=== PATIENT | female | born 1945 | race Hispanic/Latino ===

== ENCOUNTER → 2018-04-12 | Outpatient (CLI) | payer MEDICARE | END | disposition home or self-care (01) | LOC: RAH 10:48 | PROVIDERS: ATTEND Physical Medicine & Rehabilitation | DX: M47.896 Other spondylosis, lumbar region (principal); M48.061 Spinal stenosis, lumbar region without neurogenic claudication | CPT/HCPCS: 72114 ==

== ENCOUNTER → 2018-09-09 | Outpatient (CLI) | payer MEDICARE ==
[~2018-09-09] MED LIST: REGADENOSON 0.4 MG/5 ML PF SYG IVP SCH
== END | disposition home or self-care (01) ==
LOC: SHCH 07:54
PROVIDERS: ATTEND Internal Medicine Cardiovascular Disease
DX: I48.2 Chronic atrial fibrillation (principal)
CPT/HCPCS: 78452; 93017; 96374; A9500 ×2; J2785

== ENCOUNTER → 2019-02-15 | Outpatient (CLI) | payer MEDICARE | END | disposition home or self-care (01) | LOC: LAB 08:40 | PROVIDERS: ATTEND Internal Medicine Gastroenterology | DX: R10.31 Right lower quadrant pain (principal) | CPT/HCPCS: 36415; 82565; 84520 ==

== ENCOUNTER → 2019-02-18 | Outpatient (CLI) | payer MEDICARE ==
[~2019-02-18] MED LIST changes: +IOHEXOL-350 75 ML VIAL IV ONE; -REGADENOSON 0.4 MG/5 ML PF SYG IVP SCH
== END | disposition home or self-care (01) ==
LOC: RAH 07:43
PROVIDERS: ATTEND Internal Medicine Gastroenterology
DX: K59.00 Constipation, unspecified (principal); K76.0 Fatty (change of) liver, not elsewhere classified; M47.814 Spondylosis without myelopathy or radiculopathy, thoracic region; I70.0 Atherosclerosis of aorta; Z90.49 Acquired absence of other specified parts of digestive tract; Z90.710 Acquired absence of both cervix and uterus
CPT/HCPCS: 74178; Q9967

== ENCOUNTER → 2019-04-14 | Outpatient (CLI) | payer MEDICARE | END | disposition home or self-care (01) | LOC: RAH 13:16 | PROVIDERS: ATTEND Physical Medicine & Rehabilitation | DX: M47.26 Other spondylosis with radiculopathy, lumbar region (principal); M48.061 Spinal stenosis, lumbar region without neurogenic claudication; I70.0 Atherosclerosis of aorta | CPT/HCPCS: 72131 ==

== ENCOUNTER 2019-05-10 05:48 | Day surgery (SDC) | payer MEDICARE ==
[2019-05-06 14:09] VITALS: BP 132/62
[2019-05-10] VITALS (8 sets, daily range): BP systolic 146–160; BP diastolic 46–98
[~2019-05-10] VITALS: Ht 152.4 cm; Wt 54.4 kg
[~2019-05-10 05:48] MED LIST changes: +APIX5TAB PO; +ATOR10TA69 PO; +BETH50TA PO; +CARV12.511 PO; +CYCL30DR OU; +DIGO-44 PO; +ERGO500014 PO; +ESZO2 PO; +FAMO20TA8 PO; +FURO20TA4 PO; +GABA-529 PO; -IOHEXOL-350 75 ML VIAL IV ONE; +LINA145C PO; +LOSA25TA41 PO; +LOSA50TA64 PO; +METO5TAB2 PO; +SPIR25TA6 PO; +TRAM50TA2 PO
[2019-05-10] MEDS ORDERED: ISOVUE-M 200 20 ML VIAL IT ONE (07:09)
--- NOTE | 2019-05-10 07:35 | NUR ---
CT LUMBAR MYELOGRAM PROCEDURE PERFORMED BY DR. QUIROZ. PUNCTURE SITE LOW BACK AND PATIENT TOLERATED PROCEDURE WELL. CONTRAST INJECTION OF ISOVUE 170/17ML GIVEN AT 0740 AND TOLERATED WELL. END OF PROCEDURE AT 0742. SPINAL NEEDLE REMOVED AND BANDAID APPLIED WITH NO BLEEDING NOTED. REPORT GIVEN TO PRESTON MIXON. PATIENT TRANSPORTED TO DAY PATIENT VIA BED. AAO X 3 WITH NO C/O PAIN.
--- NOTE | 2019-05-10 08:00 | NUR ---
SITE ASSESSMENT: BANDAID TO LOWER LUMBAR SPINE IS DRY AND INTACT. NO DRAINAGE,NO BLEEDING, NO HEMATOMA OR SWELLING NOTED.
--- NOTE | 2019-05-10 08:00 | NUR ---
PATIENT RETURNED PATIENT BROUGHT BACK FROM IR PROCEDURE VIA STRETCHER. PATIENT AAOX3, RESPIRATIONS UNLABORED, VITAL SIGNS STABLE, DENIES ANY PAIN AT THIS TIME. BANDAID TO LOWER LUMBAR SPINE, DRY AND INTACT. SIDERAILS UP X2, BED IN LOWEST POSITION, CALL GONZALEZ IN REACH.
--- NOTE | 2019-05-10 08:15 | NUR ---
SITE ASSESSMENT: BANDAID TO LOWER LUMBAR SPINE IS DRY AND INTACT. NO DRAINAGE,NO BLEEDING, NO HEMATOMA OR SWELLING NOTED.
[2019-05-10 08:28] LABS: APPEARANCE2,CSF CLEAR (CLEAR); COLOR2,CSF COLORLESS (COLORLESS); CSF 2ND TUBE NUMBER TUBE NO.2
--- NOTE | 2019-05-10 08:30 | NUR ---
SITE ASSESSMENT: BANDAID TO LOWER LUMBAR SPINE IS DRY AND INTACT. NO DRAINAGE,NO BLEEDING, NO HEMATOMA OR SWELLING NOTED.
--- NOTE | 2019-05-10 08:45 | NUR ---
SITE ASSESSMENT: BANDAID TO LOWER LUMBAR SPINE IS DRY AND INTACT. NO DRAINAGE,NO BLEEDING, NO HEMATOMA OR SWELLING NOTED.
--- NOTE | 2019-05-10 09:15 | NUR ---
SITE ASSESSMENT: BANDAID TO LOWER LUMBAR SPINE IS DRY AND INTACT. NO DRAINAGE,NO BLEEDING, NO HEMATOMA OR SWELLING NOTED.
--- NOTE | 2019-05-10 09:45 | NUR ---
SITE ASSESSMENT: BANDAID TO LOWER LUMBAR SPINE IS DRY AND INTACT. NO DRAINAGE,NO BLEEDING, NO HEMATOMA OR SWELLING NOTED.
--- NOTE | 2019-05-10 10:45 | NUR ---
SITE ASSESSMENT: BANDAID TO LOWER LUMBAR SPINE IS DRY AND INTACT. NO DRAINAGE,NO BLEEDING, NO HEMATOMA OR SWELLING NOTED.
--- NOTE | 2019-05-10 11:45 | NUR ---
SITE ASSESSMENT: BANDAID TO LOWER LUMBAR SPINE IS DRY AND INTACT. NO DRAINAGE,NO BLEEDING, NO HEMATOMA OR SWELLING NOTED.
--- NOTE | 2019-05-10 12:05 | NUR ---
DISCHARGE INSTRUCTIONS DISCHARGE INSTRUCTIONS PROVIDED TO PATIENT AND PATIENT'S SPOUSE. FOLLOW UP APPOINTMENTS PROVIDED AND PRESCRIPTION PROVIDED WELL. HANDOUTS ON MYELOGRAM AFTER CARE PROVIDED. ALL QUESTIONS/CONCERNS ADDRESSED AND PATIENT VERBALIZED UNDERSTANDING.
--- NOTE | 2019-05-10 12:20 | NUR ---
DISCHARGED PATIENT DISCHARGED FROM FACILITY VIA WHEELCHAIR, PATIENT ABLE TO TRANSFER INTO PRIVATE VEHICLE UNASSISTED AND DRIVEN BY HER SPOUSE.,
== END 2019-05-10 12:20 | disposition home or self-care (01) ==
LOC: DAH 05:48 → SUH 05:48
PROVIDERS: ATTEND Neurological Surgery
DX: M54.16 Radiculopathy, lumbar region (principal); Z79.01 Long term (current) use of anticoagulants; Z95.0 Presence of cardiac pacemaker
CPT/HCPCS: 62304; 72132; 89051; A4606; Q9966

== ENCOUNTER → 2020-07-09 | Outpatient (CLI) | payer MEDICARE | END | disposition home or self-care (01) | LOC: SHCH 08:12 | PROVIDERS: ATTEND Internal Medicine Cardiovascular Disease | DX: I08.1 Rheumatic disorders of both mitral and tricuspid valves (principal); I42.0 Dilated cardiomyopathy; E78.5 Hyperlipidemia, unspecified; I11.9 Hypertensive heart disease without heart failure | CPT/HCPCS: 93306; 93356 ==

== ENCOUNTER → 2020-08-28 | Outpatient (CLI) | payer MEDICARE ==
[~2020-08-28] VITALS: Ht 152.4 cm; Wt 58.1 kg
[~2020-08-28] MED LIST changes: +REGADENOSON 0.4 MG/5 ML PF SYG IVP SCH
== END | disposition home or self-care (01) ==
LOC: SHCH 08:34
PROVIDERS: ATTEND Internal Medicine Cardiovascular Disease
DX: I25.10 Atherosclerotic heart disease of native coronary artery without angina pectoris (principal)
CPT/HCPCS: 78452; 93017; 96374; A9500 ×2; J2785

== ENCOUNTER 2020-09-28 09:05 | Day surgery (SDC) | payer MEDICARE ==
[2020-09-26 09:53] LABS: BASOPHILS % (AUTO) 0.5 % (0.0-5.0); LYMPHOCYTES % (AUTO) 18.5 % (21.0-51.0); MEAN CORPUSCULAR HGB CONC 33.6 g/dL (32.0-36.0); MEAN CORPUSCULAR VOLUME 95.1 fL (79-99); MONOCYTES % (AUTO) 6.6 % (3.0-13.0); NEUTROPHILS % (AUTO) 73.9 % (40.0-77.0); PLATELET COUNT (AUTO) 207 K/uL (130-400); RED CELL DISTRIBUTION WIDTH 13.2 % (11.0-15.5); WHITE BLOOD COUNT (AUTO) 12.9 K/uL (4.8-10.8)
[2020-09-26 10:01] LABS: APPEARANCE,URINE Cloudy (CLEAR); BILIRUBIN,URINE Negative (NEGATIVE); COLOR,URINE Yellow (YELLOW); GLUCOSE, URINE (UA) >=1000 mg/dL (NEGATIVE); KETONES,URINE Negative (NEGATIVE); LEUKOCYTE ESTERASE ,URINE Negative (NEGATIVE); NITRATE,URINE Negative (NEGATIVE); OCCULT BLOOD,URINE Negative (NEGATIVE); PH,URINE 5.5 (5.0-8.0); PROTEIN,URINE Trace mg/dL (NEGATIVE); UROBILINOGEN,URINE 0.2 mg/dL (0.2-1.0)
[2020-09-26 10:02] LABS: CREATININE 0.8 mg/dL (0.5-1.5); POTASSIUM 4.1 mmol/L (3.5-5.1)
[2020-09-26 10:05] LABS: INR 1.23 (0.85-1.15); PROTHROMBIN TIME 13.2 SEC (9.6-11.6)
[2020-09-26 10:06] LABS: PARTIAL THROMBOPLASTIN TIME 31.2 SEC (26.3-35.5)
[2020-09-26 10:12] LABS: BACTERIA,URINE Rare /HPF (None Seen); RBC,URINE 0-1 /HPF (0-1); WBC,URINE 0-1 /HPF (0-1)
[2020-09-27 09:25] VITALS: BP 172/83
[~2020-09-28] VITALS: Ht 152.4 cm; Wt 56.7 kg
[2020-09-28] VITALS (13 sets, daily range): BP systolic 123–175; BP diastolic 44–99
[~2020-09-28 09:05] MED LIST changes: +ACETAMINOPHEN 325 MG TAB PO PRN; -BETH50TA PO; +CALC625T31 PO; -FAMO20TA8 PO; -METO5TAB2 PO; -REGADENOSON 0.4 MG/5 ML PF SYG IVP SCH; +SODIUM CHLORIDE 0.9% 500ML 500 ML IV SCH; -TRAM50TA2 PO
[2020-09-28] MEDS ORDERED: LIDOCAINE HCL 2% 20ML ONE (11:28)
[2020-09-28] MEDS ORDERED: MIDAZOLAM HCL 1 MG/ML 2ML VIAL ONE ×2 (11:28→12:17)
[2020-09-28] MEDS ORDERED: IOHEXOL 350 MG/ML 100ML INFUS..BTL IV ONE (11:28)
[2020-09-28] MEDS ORDERED: SODIUM BICARB 50MEQ 50ML VIAL 50 ML ONE (11:28)
[2020-09-28] MEDS ORDERED: HEPARIN SODIUM 1000UNIT/ML 10ML VIAL ONE (11:28)
[2020-09-28] MEDS ORDERED: IOHEXOL-350 50ML VIAL IV ONE (11:28)
[2020-09-28] MEDS ORDERED: MEPERIDINE-PF 25 MG/ML SYG ONE ×2 (11:28→12:17)
[2020-09-28] MEDS ORDERED: NITROGLYCERIN 2 MG/VIAL VIAL IV ONE (11:28)
[2020-09-28] MEDS ORDERED: NICARDIPINE HCL 25 MG/10 ML ML IV ONE (11:56)
[2020-09-28] MEDS ORDERED: LABETALOL 20 MG/4 ML DISP.SYRIN IV ONE (12:23)
[2020-09-28] MEDS ORDERED: SODIUM CHLORIDE 0.9% 1000ML 1,000 ML IV SCH (13:00)
== END 2020-09-28 17:33 | disposition home or self-care (01) ==
LOC: DAH 09:05
PROVIDERS: ATTEND Internal Medicine Cardiovascular Disease
DX: I25.119 Atherosclerotic heart disease of native coronary artery with unspecified angina pectoris (principal); I34.0 Nonrheumatic mitral (valve) insufficiency; I48.20 Chronic atrial fibrillation, unspecified; I73.9 Peripheral vascular disease, unspecified; I25.5 Ischemic cardiomyopathy; Z95.5 Presence of coronary angioplasty implant and graft; Z79.899 Other long term (current) drug therapy; Z79.01 Long term (current) use of anticoagulants; Z98.890 Other specified postprocedural states; Z95.810 Presence of automatic (implantable) cardiac defibrillator
CPT/HCPCS: 36415; 71045; 80048; 81001; 85025; 85610; 85730; 93005; 93458; A4215; A4216; A4221; A4222; A4223 ×3; A4606; A4663; A6206; A6402; C1769 ×2; C1887 ×2; C1894; J1644 ×2; J2175 ×2; J2250 ×2; J3490 ×4; Q9965; Q9967 ×2; 96360; 96361; 99156; 99157

== ENCOUNTER 2021-04-25 05:50 | Day surgery (SDC) | payer MEDICARE ==
[2021-04-23 14:47] LABS: BASOPHILS % (AUTO) 0.6 % (0.0-5.0); EOSINOPHILS % (AUTO) 0.9 % (0.0-8.0); HEMATOCRIT 40.8 % (36-48); MEAN CORPUSCULAR HEMOGLOBIN 33.2 pg (27.0-33.0); MEAN CORPUSCULAR HGB CONC 33.3 g/dL (32.0-36.0); MEAN CORPUSCULAR VOLUME 99.5 fL (79-99); MONOCYTES % (AUTO) 9.8 % (3.0-13.0); NEUTROPHILS % (AUTO) 57.3 % (40.0-77.0); PLATELET COUNT (AUTO) 203 K/uL (130-400); RED CELL DISTRIBUTION WIDTH 13.7 % (11.0-15.5); WHITE BLOOD COUNT (AUTO) 8.1 K/uL (4.8-10.8)
[2021-04-23 14:56] LABS: CREATININE 0.9 mg/dL (0.5-1.5); POTASSIUM 4.2 mmol/L (3.5-5.1)
[2021-04-23 14:59] LABS: INR 1.26 (0.85-1.15); PROTHROMBIN TIME 13.4 SEC (9.6-11.6)
[2021-04-23 15:00] LABS: PARTIAL THROMBOPLASTIN TIME 33.1 SEC (26.3-35.5)
[2021-04-24 09:41] VITALS: BP 155/82
[~2021-04-25] VITALS: Ht 152.4 cm; Wt 56.9 kg
[2021-04-25] VITALS (11 sets, daily range): BP systolic 158–184; BP diastolic 66–97
[~2021-04-25 05:50] MED LIST changes: +ACET-66 PO; -ACETAMINOPHEN 325 MG TAB PO PRN; +ALBU8.5H8 IH; +ATOR10 PO; -ATOR10TA69 PO; +BETH1POW2 PO; +BIFI4CAP PO; +CALC-1038 PO; -CALC625T31 PO; +CARB15DR OP; +CYAN500T9 PO; +FIBER FORMULA PO; +FLUT15.845 NS; +FLUT1DIS4 IH; +IPRA42SP IH; +MULT-1296 PO; +Prevagen PO; -SODIUM CHLORIDE 0.9% 500ML 500 ML IV SCH; -SPIR25TA6 PO
[2021-04-25] MEDS ORDERED: 0.9%NACL 1000ML 1,000 ML IV ONE (06:46)
[2021-04-25] MEDS ORDERED: MIDAZOLAM HCL 1 MG/ML 2ML VIAL ONE ×3 (07:39→08:35)
[2021-04-25] MEDS ORDERED: BUPIVACAINE/PF 0.25% 30ML VIAL IJ ONE (07:39)
[2021-04-25] MEDS ORDERED: CEFAZOLIN SODIUM 1 GM VIAL ONE ×2 (07:39→09:15)
[2021-04-25] MEDS ORDERED: MEPERIDINE-PF 25 MG/ML SYG ONE ×3 (07:40→08:36)
[2021-04-25] MEDS ORDERED: LIDOCAINE HCL 1% MDV 50ML VIAL ONE (07:40)
[2021-04-25] MEDS ORDERED: DEXTROSE 50%-WATER 50 ML DISP.SYRIN IV PRN (09:30)
[2021-04-25] MEDS ORDERED: INSULIN HUMULIN R 100 UNIT/ML 3ML SQ SCH (11:30)
[2021-04-25] MEDS ORDERED: CEFAZOLIN SODIUM 1 GM VIAL IVP SCH (14:00)
== END 2021-04-25 14:30 | disposition home or self-care (01) ==
LOC: DAH 05:50
PROVIDERS: ATTEND Internal Medicine Cardiovascular Disease
DX: Z45.02 Encounter for adjustment and management of automatic implantable cardiac defibrillator (principal); I25.5 Ischemic cardiomyopathy; I44.7 Left bundle-branch block, unspecified; I50.42 Chronic combined systolic (congestive) and diastolic (congestive) heart failure; I25.10 Atherosclerotic heart disease of native coronary artery without angina pectoris; I48.20 Chronic atrial fibrillation, unspecified; Z95.5 Presence of coronary angioplasty implant and graft; Z79.899 Other long term (current) drug therapy; Z98.890 Other specified postprocedural states; Z79.01 Long term (current) use of anticoagulants; Z90.49 Acquired absence of other specified parts of digestive tract
CPT/HCPCS: 33264; 36415 ×2; 80048; 80162; 85025; 85610; 85730; 93005; A4215; A4216; A4221; A4222; A4223 ×3; A4606; A4663; C1882; J0690 ×2; J2175 ×3; J2250 ×3; J3490 ×2; J7030; 99156; 99157

== ENCOUNTER → 2021-05-06 | Outpatient (CLI) | payer MEDICARE ==
[~2021-05-06] MED LIST changes: +IOHEXOL-350 75 ML VIAL IV ONE
== END | disposition home or self-care (01) ==
LOC: RAH 07:51
PROVIDERS: ATTEND Internal Medicine Gastroenterology
DX: K59.00 Constipation, unspecified (principal); K76.0 Fatty (change of) liver, not elsewhere classified; Z90.49 Acquired absence of other specified parts of digestive tract
CPT/HCPCS: 74178; Q9967

== ENCOUNTER → 2021-09-30 | Outpatient (CLI) | payer MEDICARE ==
[~2021-09-30] MED LIST changes: -IOHEXOL-350 75 ML VIAL IV ONE
== END | disposition home or self-care (01) ==
LOC: RAH 13:58
PROVIDERS: ATTEND Physical Medicine & Rehabilitation
DX: G93.89 Other specified disorders of brain (principal); G44.86 Cervicogenic headache; M54.81 Occipital neuralgia; R26.89 Other abnormalities of gait and mobility; W19.XXXA Unspecified fall, initial encounter; Y93.89 Activity, other specified; Y92.89 Other specified places as the place of occurrence of the external cause; Y99.8 Other external cause status
CPT/HCPCS: 70450

== ENCOUNTER → 2021-10-02 | Outpatient (CLI) | payer MEDICARE | END | disposition home or self-care (01) | LOC: RAH 14:11 | PROVIDERS: ATTEND Physical Medicine & Rehabilitation | DX: M54.12 Radiculopathy, cervical region (principal); M54.2 Cervicalgia | CPT/HCPCS: 72125 ==

== ENCOUNTER → 2024-11-09 | Emergency (ER) | payer MEDICARE ==
[~2024-11-09] VITALS: Ht 154.9 cm; Wt 65.8 kg
[~2024-11-09] MED LIST changes: -BIFI4CAP PO; +BIFI4CAP2 PO; -ESZO2 PO; +ESZO2TAB56 PO
[2024-11-09 14:44] LABS: BASOPHILS # (AUTO) 0.04 K/uL (0.00-0.20); BASOPHILS % (AUTO) 0.6 % (0.0-5.0); EOSINOPHILS # (AUTO) 0.11 K/uL (0.00-0.70); EOSINOPHILS % (AUTO) 1.6 % (0.0-8.0); HEMATOCRIT 41.2 % (36-48); IMMATURE GRANULOCYTE ABSOLUTE 0.02 K/uL (0-1); LYMPHOCYTES % (AUTO) 28.5 % (21.0-51.0); MEAN CORPUSCULAR HEMOGLOBIN 30.7 pg (27.0-33.0); MEAN CORPUSCULAR HGB CONC 32.3 g/dL (32.0-36.0); MEAN CORPUSCULAR VOLUME 95.2 fL (79-99); MONOCYTES # (AUTO) 0.6 K/uL (0.1-1.0); MONOCYTES % (AUTO) 9.1 % (3.0-13.0); NEUTROPHILS # (AUTO) 4.1 K/uL (1.8-7.7); NEUTROPHILS % (AUTO) 59.9 % (40.0-77.0); PLATELET COUNT (AUTO) 172 K/uL (130-400); RED BLOOD CELL COUNT(AUTO) 4.33 MIL/uL (4.00-5.50); RED CELL DISTRIBUTION WIDTH 14.3 % (11.0-15.5); WHITE BLOOD COUNT (AUTO) 6.9 K/uL (4.8-10.8)
[2024-11-09 14:54] LABS: CREATININE 0.9 mg/dL (0.5-1.0); POTASSIUM 3.7 mmol/L (3.5-5.1)
--- NOTE | 2024-11-09 15:02 | NUR ---
back from ct
--- NOTE | 2024-11-09 15:07 | HMCIMG ---
CT HEAD WITHOUT CONTRAST INDICATION: Fall TECHNIQUE: Noncontrast axial helical CT images from the vertex through the skull base using 5 mm slice thickness without contrast material. Coronal and sagittal reconstructions were also included. Dose reduction techniques was used using integrated, automated and adaptive dose reduction exposure control. CT was performed with one or more of the following dose reduction techniques: Automated exposure control, adjustment of the mA and/or kV according to patient size, or use of iterative reconstruction technique. COMPARISON: None FINDINGS: Scattered and coalescent subcortical and periventricular white matter low attenuating areas likely represent residual of chronic small vessel arteriopathy and/or remote vascular insult. Chronic large right temporal lobe infarct and secondary ex vacuo dilation of the right lateral ventricle. Generalized mild cerebral cortical atrophy is present.. No evidence for abnormal extra-axial fluid collections or masses. The ventricles and sulci are normal in size and configuration. No evidence for intracranial parenchymal, epidural, or subdural hemorrhage, mass effect or midline shift. The pollock-white matter differentiation is well preserved. No secondary evidence to suggest acute ischemia. Mild calcific plaque is present along the menendez of the cavernous segments of both internal carotid arteries, including mild along the menendez of both vertebral arteries at the level of the foramen magnum. The brainstem and cerebellum appear normal. The visualized orbits appear unremarkable. The visible paranasal sinuses and mastoid air cells are clear. The calvarium appears normal. IMPRESSION: Chronic white matter ischemic changes, mild brain atrophy, and arteriosclerotic disease as described, without acute component.
--- NOTE | 2024-11-09 15:08 | HMCIMG ---
LEFT HAND RADIOGRAPHS - 4 VIEWS INDICATION: Fall COMPARISON: None FINDINGS: AP, lateral, and oblique views. Diffuse moderate osseous demineralization. Metallic ring obscures the fourth proximal phalangeal midshaft. No acute fracture of subluxation identified. Scaphoid bone is intact. Carpal alignment and ulnar variance is within normal limits. No radiopaque foreign body noted. IMPRESSION: No evidence for fracture or subluxation.
--- NOTE | 2024-11-09 15:09 | HMCIMG ---
PORTABLE CHEST RADIOGRAPH INDICATION: fall COMPARISON: 09/26/2020 FINDINGS: Left sided dual chamber pacer and continuous leads remain in customary position. Heart size is normal. Mild calcific plaque is present along the aortic arch menendez. The pulmonary vascularity and osiris appear normal. No abnormal pulmonary parenchymal opacity or consolidation identified. No significant pleural effusion noted. No pneumothorax detected. IMPRESSION: No radiographic evidence for any acute cardiopulmonary process.
--- NOTE | 2024-11-09 15:09 | HMCIMG ---
PELVIS RADIOGRAPH (1 VIEW) INDICATION: Fall COMPARISON: None FINDINGS: Diffuse mild osseous demineralization. No evidence for acute fracture or dislocation. Sacroiliac joints appear normal. Both hip joints appear normal. Mild calcific plaque along the inflow and outflow arterial menendez. IMPRESSION: No radiographic evidence for fracture or dislocation. If patient is unable to bear weight, further evaluation with MR imaging of the affected side is recommended.
--- NOTE | 2024-11-09 15:51 | ERN ---
ED Note History of Present Illness Stated Complaint: FALL Chief Complaint: Mechanical Fall Time Seen by MD: 14:25 Dictation: 79-year-old female with a history of Alzheimer's presents to the ED from [facility] via EMS for evaluation of unwitnessed fall at around 1:45 p.m. and 1:55 pm. Patient is a poor historian but is currently complaining of left hand pain and left elbow pain. As per EMS negative LOC, patient is on Eliquis. Allergies: Coded Allergies: No Known Allergies (Unverified Allergy, Unknown, 04/12/19) Home Meds Reported Medications Carboxymethylcellulose Sodium (Refresh Tears) 15 Ml Drops, 2 DROP OP AD, DROP 04/24/21 Atorvastatin Calcium (LIPITOR) 10 Mg Tab, 10 MG PO HS, TAB 04/24/21 Albuterol Sulfate (Proair Hfa) 8.5 Gm Hfa.aer.ad, 108 MCG IH AD 04/24/21 Fluticasone/Salmeterol (Advair Hfa 115-21 Mcg Inhaler) 12 Gm Hfa.aer.ad, 2 PUFF IH BID, INHALER 04/24/21 Acetaminophen (Tylenol) 500 Mg Tab, 500 MG PO AD, TAB 04/24/21 Cyanocobalamin (Vitamin B-12) 500 Mcg Tab, PO DAILY, TAB 04/24/21 [Prevagen ] No Conflict Check, 10 MG PO DAILY 04/24/21 Bifidobacterium Infantis (Align) 4 Mg Capsule, PO DAILY, CAP 04/24/21 Multivitamin/Iron/Folic Acid (Centrum Adults Tablet) 1 Each Tablet, 1 EACH PO DAILY, TAB 04/24/21 Ipratropium [place] (Ipratropium [place]) 15 Ml [place], IH AD, SPRAY 04/24/21 Fluticasone Propionate (Fluticasone Propionate) 15.8 Ml [place].susp, 50 MCG NS BID 04/24/21 [Fiber formula] No Conflict Check, CAP PO DAILY 04/24/21 Calcium Carbonate (Calcium) 500 Mg Tablet, 500 MG PO HS, TAB 04/24/21 Bethanechol Chloride (Bethanechol Chloride) 1 Gm Powder, 50 MG PO BID, TAB 04/24/21 Losartan Potassium (Losartan Potassium) 25 Mg Tablet, 25 MG PO HS, TAB 05/06/19 Linaclotide (Linzess) 145 Mcg Capsule, 145 MCG PO HS, CAP 05/06/19 Digoxin (Lanoxin) 125 Mcg Tablet, 125 MCG PO DAILY, TAB 05/06/19 Ergocalciferol (Vitamin D2) (Vitamin D2) 50,000 Unit Capsule, 47272 UNIT PO QMONTH, CAP 05/06/19 Apixaban (Eliquis) 5 Mg Tablet, 5 MG PO BID, TAB 05/06/19 Carvedilol (Carvedilol) 12.5 Mg Tablet, 12.5 MG PO BID, TAB 05/06/19 Losartan Potassium (Losartan Potassium) 50 Mg Tablet, 50 MG PO DAILY, TAB 05/06/19 Eszopiclone (Lunesta) 2 Mg Tablet, 2 MG PO HS, TAB 05/06/19 Cyclosporine (Restasis) 1 Each Droperette, 1 EACH OU BID, DROP 05/06/19 Gabapentin (Gabapentin) 100 Mg Capsule, 200 MG PO HS, CAP 05/06/19 Furosemide (Furosemide) 20 Mg Tablet, 10 MG PO EVERY OTHER DAY, TAB 05/06/19 Past Medical History Past Medical History: Dementia, High Cholesterol, Hypertension, Other Additional Past Medical Hx: ALZHEIMERS Surgical History: Unknown Review of System Dictation Constitutional: Negative for fever,chills, and weight loss Eyes: Negative for injury, pain,redness, and discharge ENT: Negative for injury,pain or swelling Cardiovascular: Negative for chest pain, palpitations, and edema Respiratory: Negative for shortness of breath, cough, and wheezing, Abdomen/GI: Negative for abdominal pain, nausea, vomiting, diarrhea, and constipation Back: Negative for injury and pain : Negative for injury, bleeding and discharge MS/Extremity: Positive for left elbow pain, left hand pain Skin: Negative for rash, and discoloration Initial Vital Sign VS Vital Signs Date Time Temp Pulse Resp B/P (MAP) Pulse Ox O2 Delivery O2 Flow Rate FiO2 11/09/24 14:32 98.4 70 16 134/51 99 0 11/09/24 16:45 Room Air* 21 Physical Exam Dictation General: awake, alert, NAD Head/Face: Normocephalic, atraumatic Eyes: PERRL, EOMI, vision at baseline ENT: oral cavity clear, TMs clear, no signs of infection Neck: Trachea midline, supple, no nuchal rigidity Cardiovascular: RRR, normal S1/S2, No MRGs, no JVD Respiratory: CTAB, no respiratory distress, No rales or wheezes Abdomen: Soft, non-tender, non-distended, normal bowel sounds, no guarding or rebound. Skin: Warm, dry, normal turgor, no rash MS/Extremity: Pulses equal, no cyanosis, neurovascular intact Results (Laboratory/Radiology) Laboratory/Radiology Laboratory Tests Test 11/09/24 14:34 White Blood Count 6.9 K/uL (4.8-10.8) Red Blood Count 4.33 MIL/uL (4.00-5.50) Hemoglobin 13.3 g/dL (12.0-16.0) Hematocrit 41.2 % (36-48) Mean Corpuscular Volume 95.2 fL (79-99) Mean Corpuscular Hemoglobin 30.7 pg (27.0-33.0) Mean Corpuscular Hemoglobin Concent 32.3 g/dL (32.0-36.0) Red Cell Distribution Width 14.3 % (11.0-15.5) Platelet Count 172 K/uL (130-400) Mean Platelet Volume 11.9 fL (7.5-10.5) H Immature Granulocyte % (Auto) 0.3 % (0-1) Neutrophils (%) (Auto) 59.9 % (40.0-77.0) Lymphocytes (%) (Auto) 28.5 % (21.0-51.0) Monocytes (%) (Auto) 9.1 % (3.0-13.0) Eosinophils (%) (Auto) 1.6 % (0.0-8.0) Basophils (%) (Auto) 0.6 % (0.0-5.0) Neutrophils # (Auto) 4.1 K/uL (1.8-7.7) Lymphocytes # (Auto) 2.0 K/uL (1.0-4.8) Monocytes # (Auto) 0.6 K/uL (0.1-1.0) Eosinophils # (Auto) 0.11 K/uL (0.00-0.70) Basophils # (Auto) 0.04 K/uL (0.00-0.20) Absolute Immature Granulocyte (auto 0.02 K/uL (0-1) Nucleated Red Blood Cells 0.0 % (0.0-0.19) Sodium Level 145 mmol/L (136-145) Potassium Level 3.7 mmol/L (3.5-5.1) Chloride Level 106 mmol/L (101-111) Carbon Dioxide Level 28 mmol/L (21-32) Blood Urea Nitrogen 23 mg/dL (7-18) H Creatinine 0.9 mg/dL (0.5-1.0) Glomerular Filtration Rate Calc 64 mL/min (>90) Random Glucose 130 mg/dL (70-105) H Total Calcium 9.1 mg/dL (8.5-10.1) Labs Reviewed?: Yes X-RAY Comment: REASON: fall ORDERING PHYSICIAN: RADHA BRITT MD PROCEDURE: CXR1VW - CHEST 1VW PORTABLE CHEST RADIOGRAPH INDICATION: fall COMPARISON: 09/26/2020 FINDINGS: Left sided dual chamber pacer and continuous leads remain in customary position. Heart size is normal. Mild calcific plaque is present along the aortic arch menendez. The pulmonary vascularity and osiris appear normal. No abnormal pulmonary parenchymal opacity or consolidation identified. No significant pleural effusion noted. No pneumothorax detected. IMPRESSION: No radiographic evidence for any acute cardiopulmonary process. DICTATED BY: ALLIE MELARA MD DATE: 11/09/24 1503 REASON: fall ORDERING PHYSICIAN: RADHA BRITT MD PROCEDURE: HAND 3V LT - HAND 3+VWS LT LEFT HAND RADIOGRAPHS - 4 VIEWS INDICATION: Fall COMPARISON: None FINDINGS: AP, lateral, and oblique views. Diffuse moderate osseous demineralization. Metallic ring obscures the fourth proximal phalangeal midshaft. No acute fracture of subluxation identified. Scaphoid bone is intact. Carpal alignment and ulnar variance is within normal limits. No radiopaque foreign body noted. IMPRESSION: No evidence for fracture or subluxation. DICTATED BY: ALLIE MELARA MD DATE: 11/09/24 1504 REASON: fall ORDERING PHYSICIAN: RADHA BRITT MD PROCEDURE: PELVIS - PELVIS 1-2VWS PELVIS RADIOGRAPH (1 VIEW) INDICATION: Fall COMPARISON: None FINDINGS: Diffuse mild osseous demineralization. No evidence for acute fracture or dislocation. Sacroiliac joints appear normal. Both hip joints appear normal. Mild calcific plaque along the inflow and outflow arterial menendez. IMPRESSION: No radiographic evidence for fracture or dislocation. If patient is unable to bear weight, further evaluation with MR imaging of the affected side is recommended. DICTATED BY: ALLIE MELARA MD DATE: 11/09/[address] Scan Comment: REASON: fall ORDERING PHYSICIAN: RADHA BRITT MD PROCEDURE: HEAD WO - CT HEAD/BRAIN W/O CONTRAST CT HEAD WITHOUT CONTRAST INDICATION: Fall TECHNIQUE: Noncontrast axial helical CT images from the vertex through the skull base using 5 mm slice thickness without contrast material. Coronal and sagittal reconstructions were also included. Dose reduction techniques was used using integrated, automated and adaptive dose reduction exposure control. CT was performed with one or more of the following dose reduction techniques: Automated exposure control, adjustment of the mA and/or kV according to patient size, or use of iterative reconstruction technique. COMPARISON: None FINDINGS: Scattered and coalescent subcortical and periventricular white matter low attenuating areas likely represent residual of chronic small vessel arteriopathy and/or remote vascular insult. Chronic large right temporal lobe infarct and secondary ex vacuo dilation of the right lateral ventricle. Generalized mild cerebral cortical atrophy is present.. No evidence for abnormal extra-axial fluid collections or masses. The ventricles and sulci are normal in size and configuration. No evidence for intracranial parenchymal, epidural, or subdural hemorrhage, mass effect or midline shift. The pollock-white matter differentiation is well preserved. No secondary evidence to suggest acute ischemia. Mild calcific plaque is present along the menendez of the cavernous segments of both internal carotid arteries, including mild along the menendez of both vertebral arteries at the level of the foramen magnum. The brainstem and cerebellum appear normal. The visualized orbits appear unremarkable. The visible paranasal sinuses and mastoid air cells are clear. The calvarium appears normal. IMPRESSION: Chronic white matter ischemic changes, mild brain atrophy, and arteriosclerotic disease as described, without acute component. DICTATED BY: ALLIE MELARA MD DATE: 11/09/24 1504 ED Course ED Course Orders Procedure Category Date Status Time Pelvis 1-2vws RAD 11/09/24 Resulted 14:26 Ct Head/Brain W/O CT 11/09/24 Resulted Contrast 14:26 Chest 1vw RAD 11/09/24 Resulted 14:26 Hand 3+Vws Lt RAD 11/09/24 Resulted 14:26 Basic Metabolic Panel LAB 11/09/24 Complete 14:27 Cbc With Differential LAB 11/09/24 Complete 14:27 Vital Signs Date Time Temp Pulse Resp B/P (MAP) Pulse Ox O2 Delivery O2 Flow Rate FiO2 11/09/24 16:45 98.1 70 16 125/45 99 Room Air* 0 21 11/09/24 14:32 98.4 70 16 134/51 99 0 Medical Decision Making MDM MDM: Differential diagnosis: Fall, head injury Rationale: Tests considered and ordered secondary to shared decision making include: labs, ECG and radiology Risk of complication and/or morbidity or mortality of patient management: None Medications-Per medication reconciliation Need for hospitalization: Patient does not meet criteria for hospitalization. Need for emergency major/minor surgery: No There are no social concerns with this patient. Prescription drug management Prescriptions will include symptomatic care I independently interpreted the test that were performed, results were reviewed by me and considered findings on radiology if ordered. Medical management and examination interpretation discussions were had by me with other qualified healthcare professionals as indicated for the patient's care. DX & DISP Disposition: Discharge Departure Impression: Primary Impression: Fall Additional Impression: Head injury Condition: Stable Referrals: ROYAL FITZPATRICK MD (PCP) RADHA BRITT MD Nov 09, 2024 15:51
[2024-11-09 16:45] VITALS: BP 125/45; PULSE 70; RESP 16; TEMP 98.1; O2SAT 99
--- NOTE | 2024-11-09 17:05 | NUR ---
attempted to call sbar to receiving nurse, was told by pit hoist operator nurse was busy and would call back later for report. received call right now from efren that she was enroute for pt in the facility van. updated efren that wasnt able to give report to receiving facility nurse. updated chargeback specialist chidi.
--- NOTE | 2024-11-09 17:38 | NUR ---
stec aware of pending return transfer to [facility]
--- NOTE | 2024-11-09 19:38 | NUR ---
called stec x3 as per stec contact acid plant operator helper have not received fax on pt info for transport. tried 2 different fax machines. 3rd contact acid plant operator helper stated patient is on the list for transport, paperwork ready.
== END ==
LOC: EDH 14:22
DX: S09.90XA Unspecified injury of head, initial encounter (principal); E78.00 Pure hypercholesterolemia, unspecified; F03.90 Unspecified dementia, unspecified severity, without behavioral disturbance, psychotic disturbance, mood disturbance, and anxiety; I10 Essential (primary) hypertension; Z79.01 Long term (current) use of anticoagulants; Z79.51 Long term (current) use of inhaled steroids; Z79.621 Long term (current) use of calcineurin inhibitor; Z79.899 Other long term (current) drug therapy; W18.39XA Other fall on same level, initial encounter; Y93.89 Activity, other specified; Y92.89 Other specified places as the place of occurrence of the external cause; Y99.8 Other external cause status
CPT/HCPCS: 36415; 70450; 71045; 72170; 73130; 80048; 85025; 99284